=== PATIENT | male | born 1980 | race Caucasian/White ===

== ENCOUNTER 2019-06-30 13:28 | Emergency (ER) | payer BC ==
[2019-06-30] MEDS ORDERED: Diphtheria,Pertussis(Acell),Tetanus Vaccine 0.5 ML SDV IM ONE (14:03)
--- NOTE | 2019-06-30 14:04 | EDM.PDOC ---
ED HPI GENERAL MEDICAL PROBLEM - General Chief Complaint: Lower Extremity Injury/Pain Stated Complaint: left foot injury Time Seen by Provider: 06/30/19 14:02 Source of Information: Reports: Patient History Limitations: Reports: No Limitations - History of Present Illness INITIAL COMMENTS - FREE TEXT/NARRATIVE: Patient was using ice auger and managed to cut left foot when auger edge went through top of boot. Tetanus last updated 2009. Able to ambulate. No numbness /tingling/deformity. No other injuries reported. - Related Data Allergies Allergy/AdvReac Type Severity Reaction Status Date / Time No Known Allergies Allergy Verified 06/30/19 14:22 Home Meds: Home Meds . [No Known Home Meds] 06/30/19 [History] Past Medical History Endocrine/Metabolic History: Reports: Obesity/BMI 30+ Social & Family History - Family History Family Medical History: Noncontributory - Tobacco Use Smoking Status *Q: Former Smoker Used Tobacco, but Quit: Yes Month/Year Tobacco Last Used: 2014 - Caffeine Use Caffeine Use: Reports: Soda - Alcohol Use Alcohol Use History: Yes Alcohol Use Frequency: Rarely - Recreational Drug Use Recreational Drug Use: No Drug Use in Last 12 Months: No Review of Systems - Review of Systems Review Of Systems: Comprehensive ROS is negative, except as noted in HPI. ED EXAM, GENERAL - Physical Exam Exam: See Below Exam Limited By: No Limitations General Appearance: Alert, WD/WN, No Apparent Distress Eye Exam: Bilateral Eye: EOMI, PERRL Ears: Hearing Grossly Normal Throat/Mouth: Normal Voice Head: Atraumatic, Normocephalic Neck: Supple Respiratory/Chest: No Respiratory Distress Extremities: No Pedal Edema, Other (laceration over top of left foot proximally. No tendon involvement noted. Full ROM. Brisk cap refill. NVI. ) Neurological: Alert, Oriented, Normal Cognition, Normal Gait, No Motor/Sensory Deficits Psychiatric: Normal Affect, Normal Mood Skin Exam: Warm, Dry ED TRAUMA EXTREMITY PROCEDURES - Laceration/Wound Repair Left Dorsal Foot Lac/Wound Length In cm: 2.5 Appearance: Subcutaneous, Linear, Clean Distal NVT: Neuro & Vascular Intact, No Tendon Injury Anesthetic Type: Local Local Anesthesia - Lidocaine (Xylocaine): 1% Plain Local Anesthetic Volume: 3cc Skin Prep: Chlorhexidine (Hibiciens) Exploration/Debridement/Repair: Wound Explored, In a Bloodless Field, Explored to Base, Foreign Material Removed (2 pieces of debris noted) Closed With: Sutures Suture Size: 3-0 # of Sutures: 5 Suture Type: Interrupted Drain Placement: No Sterile Dressing Applied: Nurse Tetanus Status Addressed: Yes Complications: No Course - Vital Signs Last Recorded V/S: Last Vital Signs Temp 36.8 C 06/30/19 14:42 Pulse 71 06/30/19 14:42 Resp 18 06/30/19 14:42 BP 113/79 06/30/19 14:42 Pulse Ox 95 06/30/19 14:42 - Orders/Labs/Meds Orders: Active Orders 24 hr Category Date Time Status Vaccines to be Administered [RC] PER UNIT ROUTINE Care 06/30/19 14:03 Ordered Meds: Medications Discontinued Medications Generic Name Dose Route Start Last Admin Trade Name Freq PRN Reason Stop Dose Admin Bacitracin 1 dose 06/30/19 14:28 06/30/19 14:43 Bacitracin Oint 1 Gm TOP 06/30/19 14:29 1 dose ONETIME ONE Administration Diphtheria/Tetanus/Acell Pertussis 0.5 ml 06/30/19 14:03 06/30/19 14:13 Adacel IM 06/30/19 14:04 0.5 ml .ONCE ONE Administration Lidocaine HCl 5 ml 06/30/19 14:03 06/30/19 14:30 Xylocaine-Mpf 1% INJECT 06/30/19 14:04 5 ml ONETIME ONE Administration - Re-Assessments/Exams Free Text/Narrative Re-Assessment/Exam: 06/30/19 14:45 Wound soaked/cleansed/repaired. Wound care reviewed. Wound dressed. Sutures out on one week on Monday. To follow up as needed if any signs of infection develop. Patient declined Tylenol and Ibuprofen Departure - Departure Time of Disposition: 14:46 Disposition: Home, Self-Care 01 Condition: Good Clinical Impression: Laceration of left foot excluding toes Qualifiers: Encounter type: initial encounter Qualified Code(s): S91.312A - Laceration without foreign body, left foot, initial encounter - Discharge Information *PRESCRIPTION DRUG MONITORING PROGRAM REVIEWED*: Not Applicable *COPY OF PRESCRIPTION DRUG MONITORING REPORT IN PATIENT BROOKE: Not Applicable Instructions: Sutured Wound Care, [id number] Referrals: Sheila Gale PA-C [Primary Care Provider] - Forms: ED Department Discharge Additional Instructions: Have sutures removed in one week/on Monday. They can be removed for free if you contact our hospital clinic. Wound care as discussed. Follow up as needed if you have problems/signs of infection. Sepsis Event Note - Focused Exam Vital Signs: Vital Signs Temp Pulse Resp BP Pulse Ox 06/30/19 14:42 36.8 C 71 18 113/79 95 06/30/19 13:34 36.8 C 77 18 122/63 98 Date Exam was Performed: 06/30/19 Time Exam was Performed: 14:48 - My Orders Last 24 Hours: My Active Orders 06/30/19 14:03 Vaccines to be Administered [RC] PER UNIT ROUTINE - Assessment/Plan Last 24 Hours: My Active Orders 06/30/19 14:03 Vaccines to be Administered [RC] PER UNIT ROUTINE
[2019-06-30] MEDS ORDERED: Bacitracin Oint 1 GM U/D Packet TOP ONE (14:28)
== END 2019-06-30 15:00 | disposition home or self-care (01) ==
LOC: LL.ED 13:28
DX: S91.312A Laceration without foreign body, left foot, initial encounter (principal); E66.9 Obesity, unspecified; Z87.891 Personal history of nicotine dependence; Z23 Encounter for immunization; Z68.38 Body mass index [BMI] 38.0-38.9, adult; W26.8XXA Contact with other sharp object(s), not elsewhere classified, initial encounter
CPT/HCPCS: 12001; 90471; 90715; 99283-25; J2001

== ENCOUNTER 2020-10-30 17:07 | Emergency (ER) | payer BC, OTHER ==
--- NOTE | 2020-11-10 00:48 | EDM.PDOC ---
ED HPI GENERAL MEDICAL PROBLEM - General Chief Complaint: Laceration Stated Complaint: head laceration Time Seen by Provider: 10/30/20 17:10 Source of Information: Reports: Patient History Limitations: Reports: No Limitations - History of Present Illness INITIAL COMMENTS - FREE TEXT/NARRATIVE: Pt. presents to ER with complaints of head injury/laceration to R forehead area. Pt. states that he was hit in the head with a robot at work at [employer]. He states that he has had blurred vision since the event. Denies any LOC. No nausea or vomiting. Pt. recalls the entire event. Pt. denies any injury elsewhere. No numbness/tingling to extremities. No problems with speech/ambulation. Denies any neck pain. No problems with speech/ambulation. Onset Date: 10/30/20 Location: Reports: Head Quality: Reports: Ache Right Upper Head Pain Score (Numeric/FACES): 3 - Related Data Allergies Allergy/AdvReac Type Severity Reaction Status Date / Time No Known Allergies Allergy Verified 10/30/20 17:08 Home Meds: Home Meds . [No Known Home Meds] 06/30/19 [History] Past Medical History - Past Health History Medical/Surgical History: Denies Medical/Surgical History Endocrine/Metabolic History: Reports: Obesity/BMI 30+ Social & Family History - Family History Family Medical History: No Pertinent Family History - Tobacco Use Tobacco Use Status *Q: Never Tobacco User Second Hand Smoke Exposure: No - Caffeine Use Caffeine Use: Reports: None Other Caffeine Use: daily - Recreational Drug Use Recreational Drug Use: No ED ROS GENERAL - Review of Systems Review Of Systems: See Below Constitutional: Reports: No Symptoms HEENT: Reports: Vision Change Respiratory: Reports: No Symptoms Cardiovascular: Reports: No Symptoms Endocrine: Reports: No Symptoms GI/Abdominal: Reports: No Symptoms : Reports: No Symptoms Musculoskeletal: Reports: No Symptoms Skin: Reports: No Symptoms Neurological: Reports: Dizziness, Headache Psychiatric: Reports: No Symptoms Hematologic/Lymphatic: Reports: No Symptoms Immunologic: Reports: No Symptoms ED EXAM, GENERAL - Physical Exam Exam: See Below Exam Limited By: No Limitations General Appearance: Alert, WD/WN, No Apparent Distress Eye Exam: Bilateral Eye: EOMI, Normal Fundi, Normal Inspection, PERRL Nose: Normal Inspection, Normal Mucosa Throat/Mouth: Normal Lips, Normal Teeth, Normal Oropharynx, Normal Voice, No Airway Compromise Head: Other (superficial laceration above R eye. No underlying goyo deformity.) Neck: Normal Inspection, Supple, Non-Tender, Full Range of Motion. No: Tender Lateral, Tender Midline Course - Vital Signs Last Recorded V/S: Last Vital Signs Temp 36.4 C 10/30/20 17:07 Pulse 77 10/30/20 17:07 Resp 18 10/30/20 17:07 BP 140/88 10/30/20 17:07 Pulse Ox 96 10/30/20 17:07 - Radiology Interpretation Free Text/Narrative:: CT brain negative for acute pathology Departure - Departure Time of Disposition: 18:30 Disposition: Home, Self-Care 01 Clinical Impression: Closed head injury - Discharge Information Instructions: Head Injury, Adult Referrals: Sheila Gale PA-C [Primary Care Provider] - Forms: ED Department Discharge Additional Instructions: Home to rest. Off work tomorrow. Tylenol and ibuprofen as needed for discomfort. Return to ER if you develop vomiting, confusion, vision loss/change. Feel free to call at any time if you have questions. Sepsis Event Note (ED) - Evaluation Sepsis Screening Result: No Definite Risk - Problem List Review Problem List Initiated/Reviewed/Updated: Yes - Assessment/Plan Plan: Home to rest. Off work tomorrow. Tylenol and ibuprofen as needed for discomfort. Return to ER if you develop vomiting, confusion, vision loss/change. Feel free to call at any time if you have questions.
== END 2020-10-30 18:10 | disposition home or self-care (01) ==
LOC: LL.ED 17:07
DX: S01.111A Laceration without foreign body of right eyelid and periocular area, initial encounter (principal); E66.9 Obesity, unspecified; Z68.30 Body mass index [BMI] 30.0-30.9, adult; W22.8XXA Striking against or struck by other objects, initial encounter; Y99.0 Civilian activity done for income or pay
CPT/HCPCS: 70450; 99283; 99283-25

== ENCOUNTER 2021-01-26 18:06 | Emergency (ER) | payer BC ==
[2021-01-26] MEDS ORDERED: diphenhydrAMINE 25 MG Cap PO ONE (18:17)
[2021-01-26] MEDS ORDERED: Dexamethasone 10 MG/ML SDV PO ONE (18:18)
--- NOTE | 2021-01-26 18:20 | EDM.PDOC ---
ED HPI GENERAL MEDICAL PROBLEM - General Chief Complaint: Bite:Animal, Insect Stated Complaint: bee sting Time Seen by Provider: 01/26/21 18:11 Source of Information: Reports: Patient - History of Present Illness INITIAL COMMENTS - FREE TEXT/NARRATIVE: Paul is a 40 y/o male who comes to the ER after getting bit by a bee. He has had past bee sting reactions, but not rally any since he was in the third grade. He reports a couple bee stings earlier in the summer, but no reaction to those. Tonight he was working in his bee [employer] and was bit on the right thumb by a bee. He did take a Benadryl 25mg po and Ceterizine 10mg po about an hour after the bite because he was feeling tingling in his arms and hands. He denied any difficulty breathing. - Related Data Allergies Allergy/AdvReac Type Severity Reaction Status Date / Time No Known Allergies Allergy Verified 10/30/20 17:08 Home Meds: Home Meds EPINEPHrine [Epipen 2-Thomas] 0.3 mg IM ONETIME PRN #1 auto.injct 01/26/21 [Rx] diphenhydrAMINE [Benadryl] 1 tab PO ASDIRECTED PRN 01/26/21 [History] Past Medical History - Past Health History Medical/Surgical History: Denies Medical/Surgical History Endocrine/Metabolic History: Reports: Obesity/BMI 30+ Social & Family History - Family History Family Medical History: No Pertinent Family History - Caffeine Use Caffeine Use: Reports: None Other Caffeine Use: daily ED ROS GENERAL - Review of Systems Review Of Systems: See Below Constitutional: Reports: No Symptoms HEENT: Reports: No Symptoms Respiratory: Reports: No Symptoms Cardiovascular: Reports: No Symptoms Endocrine: Reports: No Symptoms GI/Abdominal: Reports: No Symptoms : Reports: No Symptoms Musculoskeletal: Reports: No Symptoms Skin: Reports: No Symptoms (Bee sting right thumb), Other Neurological: Reports: No Symptoms Psychiatric: Reports: No Symptoms Hematologic/Lymphatic: Reports: No Symptoms Immunologic: Reports: No Symptoms ED EXAM, ANIMAL BITE - Physical Exam Exam: See Below General Appearance: Alert, WD/WN, No Apparent Distress (Adult male, in work clothes and sitting on the ER cart.) Ears: Normal External Exam, Hearing Grossly Normal Nose: Normal Inspection, Normal Mucosa Throat/Mouth: Normal Inspection, Normal Voice Head: Atraumatic, Normocephalic Neck: Normal Inspection Respiratory/Chest: No Respiratory Distress, Lungs Clear, Chest Non-Tender Cardiovascular: Normal Peripheral Pulses, Regular Rate, Rhythm, No Murmur GI/Abdominal: Normal Bowel Sounds, Soft (Male) Exam: Deferred Rectal (Males) Exam: Deferred Back Exam: Normal Inspection Extremities: Other (Note faint erythema to base of right thumb, no obvious bite or stinger noted.) Neurological: Alert, Oriented, CN II-XII Intact, Normal Cognition, Normal Gait Psychiatric: Normal Affect, Normal Mood Skin Exam: Normal Color, Warm/Dry Lymphatic: No Adenopathy Course - Vital Signs Text/Narrative:: 1810 The patient was seen by the SALES AND SERVICE ADVISOR. No labs or imaging was done. He was given another Benadryl 25mg po and Decadron 6mg po solution. 1899 He was observed about an hour and no worsening of symptoms and remained stable. Will send him home with antihistamine use for the next 48 hours and monitoring. Do not see need for additional steroids for outpatient use. Written instructions were given and he left the ER in stable condition. - Orders/Labs/Meds Meds: Medications Discontinued Medications Generic Name Dose Route Start Last Admin Trade Name Freq PRN Reason Stop Dose Admin Dexamethasone 6 mg 01/26/21 18:18 01/26/21 18:26 Dexamethasone 10 Mg/Ml Sdv PO 01/26/21 18:19 6 mg ONETIME ONE Administration Diphenhydramine HCl 25 mg 01/26/21 18:17 01/26/21 18:26 Diphenhydramine 25 Mg Cap PO 01/26/21 18:18 25 mg ONETIME ONE Administration Departure - Departure Time of Disposition: 19:02 Disposition: Home, Self-Care 01 Condition: Good Clinical Impression: Bee sting reaction Qualifiers: Encounter type: initial encounter Injury intent: accidental or unintentional Qualified Code(s): T63.441A - Toxic effect of venom of bees, accidental (unintentional), initial encounter - Discharge Information Prescriptions: EPINEPHrine [Epipen 2-Thomas] 0.3 mg IM ONETIME PRN #1 auto.injct PRN Reason: Shortness Of Breath Instructions: Bee, Wasp, or Hornet Sting, Adult Referrals: Sheila Gale PA-C [Primary Care Provider] - Forms: ED Department Discharge Additional Instructions: -Diphenhydramine 25mg-50mg oral every 6 hours for the next 24-48 hours (Use over the counter meds) -EpiPen 2 pack Use as directed for future bee stings. (Rx) -Rest today as the meds may make you tired. -Follow up with your PCP as needed -Return to the ER if you have further concerns - Problem List & Annotations (1) Bee sting reaction SNOMED Code(s): 019217590, [id number], [id number] Code(s): T63.441A - TOXIC EFFECT OF VENOM OF BEES, ACCIDENTAL, INIT Status: Acute Annotation/Comment:: -Seems a mild reaction, no respiratory symptoms. 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 -Continue Diphenhydramine x 48 hours and prn Qualifiers: Encounter type: initial encounter Injury intent: accidental or unintentional Qualified Code(s): T63.441A - Toxic effect of venom of bees, accidental (unintentional), initial encounter - Assessment/Plan Plan: See Below
== END 2021-01-26 19:08 | disposition home or self-care (01) ==
LOC: LL.ED 18:06
DX: T63.441A Toxic effect of venom of bees, accidental (unintentional), initial encounter (principal); E66.9 Obesity, unspecified
CPT/HCPCS: 99282; 99283; A9270-GY; J1100

== ENCOUNTER 2021-06-27 01:35 | Emergency (ER) | payer BC ==
[2021-06-27 03:28] LABS: CHLORIDE,CL 106 mmol/L (98-107); SODIUM,NA 141 mmol/L (136-145)
[2021-06-27 03:50] LABS: BARBITURATE SCREEN,URINE NEGATIVE (NEGATIVE); BENZODIAZEPINES SCREEN,URINE NEGATIVE (NEGATIVE); EDDP,URINE SCREEN NEGATIVE (NEGATIVE); TCA SCREEN,URINE NEGATIVE (NEGATIVE); THC SCREEN,URINE 50 NG/ML NEGATIVE (NEGATIVE)
[2021-06-27 03:51] LABS: BUPRENORPHINE SCREEN,URINE NEGATIVE (NEGATIVE)
== END 2021-06-27 04:25 | disposition home or self-care (01) ==
LOC: LL.ED 01:35
DX: U07.1 COVID-19 (principal); R20.8 Other disturbances of skin sensation; E66.9 Obesity, unspecified
CPT/HCPCS: 36415; 80053; 80305-QW; 80307; 81003; 83735; 85025; 85379; 85610; 86140; 99283; 99284

== ENCOUNTER 2024-03-20 20:19 | Emergency (ER) | payer BC ==
[2024-03-20] MEDS ORDERED: Sodium Chloride 0.9% 10 ML Syringe FLUSH PRN (20:28)
[2024-03-20 20:52] LABS: BASOPHILS ABSOLUTE AUTO 0.04 K/uL (0.00-0.20); BASOPHILS PERCENT AUTO 0.5 % (0.0-2.0); EOSINOPHILS PERCENT AUTO 1.2 % (0.0-5.0); HEMATOCRIT 41.4 % (39.0-49.0); HEMOGLOBIN 13.6 g/dL (13.1-16.8); LYMPHOCYTES ABSOLUTE AUTO 2.55 K/uL (0.50-3.50); LYMPHOCYTES PERCENT AUTO 31.6 % (10.0-50.0); MEAN CORPUSCULAR HEMOGLOBIN 27.3 pg (28.2-33.3); MEAN CORPUSCULAR HGB CONC 32.9 g/dL (31.7-36.0); MONOCYTES ABSOLUTE AUTO 0.49 K/uL (0.00-1.00); MONOCYTES PERCENT AUTO 6.1 % (2.0-14.0); NEUTROPHILS ABSOLUTE AUTO 4.89 K/uL (1.40-7.00); NEUTROPHILS PERCENT AUTO 60.6 % (45.0-80.0); PLATELET COUNT,PLT 122 K/uL (150-350); RED BLOOD CELL COUNT 4.99 M/uL (4.33-5.41); WHITE BLOOD CELL COUNT,WBC 8.1 K/uL (4.0-10.2)
[2024-03-20] MEDS: Aluminum Hydroxide/Magnesium Hydroxide/Simethicone Susp 30 ML Cup PO ONE (21:09)
[2024-03-20] MEDS: Lidocaine 2% Viscous Solution 15 ML UD PO ONE (21:10)
[2024-03-20 21:13] VITALS: PULSE 78
[2024-03-20 21:13] LABS: PROTHROMBIN TIME 10.4 SEC (9.0-11.1)
[2024-03-20 21:21] LABS: ALANINE AMINOTRANSFERASE,ALT 64 U/L (12-78); ALBUMIN 4.1 g/dL (3.4-5.0); ALKALINE PHOSPHATASE 91 IU/L (46-116); ANION GAP 4.4 meq/L (7-15); ASPARTATE AMNIOTRANSFERASE,AST 36 U/L (15-37); BILIRUBIN TOTAL 0.4 mg/dL (0.2-1.0); BLOOD UREA NITROGEN,BUN 13 mg/dL (7-18); CARBON DIOXIDE,CO2 30.6 mmol/L (21.0-32.0); CHLORIDE,CL 102 mmol/L (98-107); CREATININE 1.01 mg/dL (0.51-1.17); GLUCOSE RANDOM 100 mg/dL (70-99); LIPASE 48 U/L (16-77); POTASSIUM,K 3.9 mmol/L (3.5-5.1); PRO B-TYPE NATRIUR PEPT,BNPPRO 14 pg/mL (0-125); PROTEIN TOTAL,TP 7.6 g/dL (6.4-8.2); SODIUM,NA 137 mmol/L (136-145)
[2024-03-20 21:23] LABS: ESTIMATED GFR 95 mL/min (>=60)
[2024-03-20 21:52] VITALS: BP 145/83
== END 2024-03-20 21:45 | disposition home or self-care (01) ==
LOC: LL.ED 20:19
DX: K21.9 Gastro-esophageal reflux disease without esophagitis (principal); I10 Essential (primary) hypertension; E66.9 Obesity, unspecified
CPT/HCPCS: 36415; 71046; 80053; 83690; 83880; 84484; 85025; 85610; 93005; 93010; 99284; 99285; A9270-GY

== ENCOUNTER 2024-11-15 04:13 | Emergency (ER) | payer BC ==
[2024-11-15] MEDS ORDERED: Sodium Chloride 0.9% 10 ML Syringe FLUSH PRN (04:29)
[2024-11-15 05:13] LABS: BASOPHILS ABSOLUTE AUTO 0.01 K/uL (0.00-0.20); BASOPHILS PERCENT AUTO 0.2 % (0.0-2.0); EOSINOPHILS ABSOLUTE AUTO 0.02 K/uL (0.00-0.50); EOSINOPHILS PERCENT AUTO 0.3 % (0.0-5.0); HEMATOCRIT 40.6 % (39.0-49.0); HEMOGLOBIN 13.6 g/dL (13.1-16.8); IMMATURE GRAN ABSOLUTE AUTO 0.03 10^3/uL (0.00-0.04); IMMATURE GRAN PERCENT AUTO 0.5 % (0.0-0.4); LYMPHOCYTES ABSOLUTE AUTO 1.24 K/uL (0.50-3.50); LYMPHOCYTES PERCENT AUTO 19.2 % (10.0-50.0); MEAN CORPUSCULAR HEMOGLOBIN 27.3 pg (28.2-33.3); MEAN CORPUSCULAR HGB CONC 33.5 g/dL (31.7-36.0); MEAN CORPUSCULAR VOLUME 81.5 fL (84.0-98.0); MONOCYTES ABSOLUTE AUTO 0.14 K/uL (0.00-1.00); MONOCYTES PERCENT AUTO 2.2 % (2.0-14.0); NEUTROPHILS ABSOLUTE AUTO 5.03 K/uL (1.40-7.00); NEUTROPHILS PERCENT AUTO 77.6 % (45.0-80.0); PLATELET COUNT,PLT 71 K/uL (150-350); RED BLOOD CELL COUNT 4.98 M/uL (4.33-5.41); RED CELL DISTRIBUTION WIDTH 13.4 % (11.2-14.1); WHITE BLOOD CELL COUNT,WBC 6.5 K/uL (4.0-10.2)
[2024-11-15 05:14] LABS: INR 1.1 (0.9-1.1)
[2024-11-15 05:17] LABS: ALANINE AMINOTRANSFERASE,ALT 66 U/L (12-78); ALBUMIN 3.9 g/dL (3.4-5.0); ALKALINE PHOSPHATASE 77 IU/L (46-116); ANION GAP 9.2 meq/L (7-15); ASPARTATE AMNIOTRANSFERASE,AST 45 U/L (15-37); BILIRUBIN TOTAL 0.4 mg/dL (0.2-1.0); BLOOD UREA NITROGEN,BUN 17 mg/dL (7-18); CALCIUM 8.2 mg/dL (8.5-10.1); CARBON DIOXIDE,CO2 26.8 mmol/L (21.0-32.0); CHLORIDE,CL 102 mmol/L (98-107); CREATININE 0.96 mg/dL (0.51-1.17); ESTIMATED GFR 101 mL/min (>=60); GLUCOSE RANDOM 155 mg/dL (70-99); POTASSIUM,K 4.2 mmol/L (3.5-5.1); PROTEIN TOTAL,TP 7.2 g/dL (6.4-8.2); SODIUM,NA 138 mmol/L (136-145)
[2024-11-15] MEDS: Lidocaine 2% Viscous Solution 15 ML UD PO ONE (05:32)
[2024-11-15] MEDS: Aluminum Hydroxide/Magnesium Hydroxide/Simethicone Susp 30 ML Cup PO ONE (05:32)
== END 2024-11-15 10:00 | disposition home or self-care (01) ==
LOC: LL.ED 04:13
DX: R07.89 Other chest pain (principal); I10 Essential (primary) hypertension
CPT/HCPCS: 36415; 71045; 80053; 83690; 84484; 85025; 85610; 93005; 99285; A9270